=== PATIENT | male | born 1975 | race Two or more races ===

== ENCOUNTER 2023-08-21 19:22 | Emergency (ER) | payer OTHER ==
[~2023-08-21] VITALS: Ht 165.1 cm; Wt 86.4 kg
[2023-08-21 19:27] VITALS: TEMP 98.5
[2023-08-21 20:35] VITALS: BP 132/87; PULSE 98; RESP 18
[2023-08-21] MEDS ORDERED: HYDR25TA84 PO (20:48)
[2023-08-21] MEDS ORDERED: ATEN-72 PO (20:48)
[2023-08-21] MEDS ORDERED: IBUP-1492 PO (22:54)
[2023-08-21] MEDS: IBUPROFEN 600 MG TABLET PO ONE (23:01)
== END 2023-08-21 23:13 | disposition home or self-care (01) ==
LOC: EMS 19:23
DX: S00.83XA Contusion of other part of head, initial encounter (principal); X58.XXXA Exposure to other specified factors, initial encounter; Y93.89 Activity, other specified; Y92.89 Other specified places as the place of occurrence of the external cause; Y99.8 Other external cause status
CPT/HCPCS: 70450; 70486; 99284